=== PATIENT | male | born 1980 | race Caucasian/White ===

== ENCOUNTER → 2017-02-19 | Outpatient (CLI) | payer OTHER ==
[~2017-02-19] MED LIST: ALPR1TAB2 PO; AMOX1TAB64 PO; DOCU-131 PO; ESOM40CA PO; GABA800T2 PO; HYDR-3307 PO; HYDR-882 PO; KETO10TA PO; METH750T87 PO; MORP60TA34 PO; MULT-224 PO; OMEG1CAP24 PO; PREG300C PO; TESTOSTERONE SQ
== END | disposition home or self-care (01) ==
LOC: RAD 12:34
PROVIDERS: ATTEND Nurse Practitioner Family
DX: N20.0 Calculus of kidney (principal); S09.90XD Unspecified injury of head, subsequent encounter; Z98.890 Other specified postprocedural states; X58.XXXD Exposure to other specified factors, subsequent encounter
CPT/HCPCS: 70450; 74176

== ENCOUNTER 2017-03-31 07:55 | Emergency (ER) | payer OTHER ==
[~2017-03-31] VITALS: Ht 190.5 cm; Wt 98.2 kg
[2017-03-31] MEDS ORDERED: FAMOTIDINE 20 MG/2 ML IVP ONE (08:30)
[2017-03-31] MEDS ORDERED: HYDROmorphone 1 MG/ML, 1ML IVPush PRN (08:30)
[2017-03-31] MEDS ORDERED: ONDANSETRON 2MG/ML, 2ML IVPush ONE (08:30)
[2017-03-31] MEDS ORDERED: SODIUM CHLORIDE 0.9% 1,000ML IVBOLUS ONE (08:30)
[2017-03-31] MEDS ORDERED: SODIUM CHLORIDE FLUSH 10ML SYR IVF ONE (08:30)
[2017-03-31] MEDS ORDERED: ONDANSETRON 2MG/ML, 2ML ONE (08:48)
[2017-03-31] MEDS ORDERED: FAMOTIDINE 20 MG/2 ML ONE (08:49)
[2017-03-31 08:50] LABS: BASOPHILS # (AUTO) 0.02 x10^3/uL (0-0.1); BASOPHILS % (AUTO) 0 % (0-1); EOSINOPHILS # (AUTO) 0.31 x10^3/uL (0-0.4); EOSINOPHILS % (AUTO) 4 % (1-7); LYMPHOCYTES # (AUTO) 1.65 x10^3/uL (1-3.4); LYMPHOCYTES % (AUTO) 19 % (22-44); MD NO; MEAN CORPUSCULAR HEMOGLOBIN 30.9 pg (27.5-34.5); MEAN CORPUSCULAR HGB CONC 33.7 g/dL (33.2-36.2); MEAN CORPUSCULAR VOLUME 91.8 fL (81-97); MEAN PLATELET VOLUME 8.8 fL (7.4-10.4); MONOCYTES # (AUTO) 0.52 x10^3/uL (0.2-0.8); MONOCYTES % (AUTO) 6 % (2-9); NEUTROPHILS # (AUTO) 6.05 x10^3/uL (1.8-6.8); NEUTROPHILS % (AUTO) 71 % (42-75); PLATELET COUNT 179 x10^3/uL (130-400); RED BLOOD COUNT 4.87 x10^6/uL (4.38-5.82)
[2017-03-31 09:02] LABS: ALANINE AMINOTRANSFERASE 59 U/L (12-78); ALBUMIN 4.4 g/dL (3.4-5.0); ANION GAP 6 mmol/L (5-15); CALCIUM 9.3 mg/dL (8.5-10.1); CHLORIDE 106 mmol/L (98-107); CREATININE 0.94 mg/dL (0.7-1.3)
[2017-03-31 09:04] LABS: ALKALINE PHOSPHATASE 87 U/L (45-117); BILIRUBIN,TOTAL 1.1 mg/dL (0.2-1.0); TOTAL PROTEIN 7.6 g/dL (6.4-8.2)
[2017-03-31] MEDS ORDERED: HYDROmorphone 1 MG/ML, 1ML ONE (09:11)
[2017-03-31 09:18] LABS: MICROSCOPIC NOT IND
[2017-03-31 09:26] LABS: CULTURE INDICATED? NO
[2017-03-31] MEDS ORDERED: OMNIPAQUE 350 MG/ML, 100ML BOTTLE ONE (11:40)
[2017-03-31] MEDS ORDERED: HYDROmorphone 2 MG/ML, 1ML ONE ×2 (11:42→12:27)
[2017-03-31] MEDS ORDERED: METHYLNALTREXONE 12 MG/0.6 ML SQ ONE (12:00)
[2017-03-31 12:10] VITALS: BP 128/75
== END 2017-03-31 12:22 | disposition home or self-care (01) ==
LOC: ED 09:17
DX: K29.00 Acute gastritis without bleeding (principal); K59.00 Constipation, unspecified; Z90.49 Acquired absence of other specified parts of digestive tract; Z98.84 Bariatric surgery status; Z93.3 Colostomy status; Z98.890 Other specified postprocedural states
CPT/HCPCS: 36415; 74177; 80053; 81003; 83690; 85025; 96361; 96372; 96374; 96375; 99285; J1170; J2405; J7030; Q9967; S0028

== ENCOUNTER 2018-05-31 17:01 | Emergency (ER) | payer OTHER ==
[~2018-05-31] VITALS: Ht 190.5 cm; Wt 97.1 kg
[2018-05-31] MEDS ORDERED: SODIUM CHLORIDE FLUSH 10ML SYR IVF ONE (17:30)
[2018-05-31 17:42] LABS: BASOPHILS # (AUTO) 0.01 x10^3/uL (0-0.1); BASOPHILS % (AUTO) 0 % (0-1); EOSINOPHILS # (AUTO) 0.29 x10^3/uL (0-0.4); EOSINOPHILS % (AUTO) 5 % (1-7); LYMPHOCYTES # (AUTO) 1.99 x10^3/uL (1-3.4); LYMPHOCYTES % (AUTO) 31 % (22-44); MD NO; MEAN CORPUSCULAR HEMOGLOBIN 31.4 pg (27.5-34.5); MEAN CORPUSCULAR HGB CONC 34.4 g/dL (33.2-36.2); MEAN CORPUSCULAR VOLUME 91.3 fL (81-97); MEAN PLATELET VOLUME 8.9 fL (7.4-10.4); MONOCYTES # (AUTO) 0.48 x10^3/uL (0.2-0.8); MONOCYTES % (AUTO) 8 % (2-9); NEUTROPHILS # (AUTO) 3.59 x10^3/uL (1.8-6.8); NEUTROPHILS % (AUTO) 56 % (42-75); PLATELET COUNT 152 x10^3/uL (130-400); RED BLOOD COUNT 4.97 x10^6/uL (4.38-5.82); RED CELL DISTRIBUTION WIDTH 13.4 % (9.4-14.8)
[2018-05-31 17:46] LABS: ALBUMIN 4.6 g/dL (3.4-5.0); ANION GAP 4 mmol/L (5-15); CHLORIDE 110 mmol/L (98-107)
[2018-05-31 17:50] LABS: ALANINE AMINOTRANSFERASE 44 U/L (12-78); ALKALINE PHOSPHATASE 110 U/L (45-117); BILIRUBIN,TOTAL 0.9 mg/dL (0.2-1.0); CREATININE 0.95 mg/dL (0.7-1.3); TOTAL PROTEIN 7.7 g/dL (6.4-8.2)
[2018-05-31] MEDS ORDERED: ONDANSETRON 2MG/ML, 2ML IVPush ONE (18:00)
[2018-05-31] MEDS ORDERED: ONDANSETRON 2MG/ML, 2ML ONE (18:08)
[2018-05-31] MEDS ORDERED: HYDROmorphone 2 MG/ML, 1ML ONE (18:10)
--- NOTE | 2018-05-31 18:23 | NUR ---
THIS IS A 38 YEAR OLD MALE WHO C/O OF UPPER ABD PAIN, 9/10 PAIN. PT HAS HX OF BACK PAIN, TAKES NORCO. PT TO CT SCAN VIA DEBOR[facility]
[2018-05-31] MEDS: HYDROmorphone 2 MG/ML, 1ML IVPush PRN ×2 (18:26→18:41)
[2018-05-31] MEDS ORDERED: HYDROmorphone 1 MG/ML, 1ML AMP ONE (18:35)
--- NOTE | 2018-05-31 18:42 | NUR ---
RE-MEDICATED WITH DILAUDID IV DUE TO PAIN STILL 10/13. REPORT TO MAYANK GONZALES, PLAN OF CARE DISCUSSED.
--- NOTE | 2018-05-31 18:50 | NUR ---
Bedside SBAR report received from RNAdebayo. Pt resting on gurney, at bedside. Pt on monitors, VSS. Pt being medicated, per MAR, for pain.
--- NOTE | 2018-05-31 19:24 | NUR ---
Dr. Castillo at bedside to discuss ED findings and POC.
--- NOTE | 2018-05-31 19:35 | NUR ---
Pt given water for PO challenge. No emesis, no change.
[2018-05-31 20:10] VITALS: BP 118/67
--- NOTE | 2018-05-31 20:12 | NUR ---
Patient/Caregiver given discharge instructions and they have confirmed that they understand the instructions. Patient ambulatory with steady gait.
== END 2018-05-31 20:13 | disposition home or self-care (01) ==
LOC: ED 20:07
DX: R10.13 Epigastric pain (principal); R10.12 Left upper quadrant pain
CPT/HCPCS: 36415; 74177; 80053; 83690; 85025; 96374; 96375; 99284; J1170; J2405

== ENCOUNTER → 2018-05-31 | Outpatient (CLI) | payer OTHER ==
[~2018-05-31] MED LIST changes: +BISA-49 PO; -GABA800T2 PO; +GABA800T5 PO; +HYDR-3653 PO; -HYDR-882 PO; -MULT-224 PO; +MULT-642 PO
== END | disposition home or self-care (01) ==
LOC: EDSTATUS 15:30 → RAD 15:31
PROVIDERS: ATTEND Surgery
DX: R10.9 Unspecified abdominal pain (principal)
CPT/HCPCS: 76705

== ENCOUNTER 2018-06-14 15:04 | Outpatient (CLI) | payer OTHER ==
[2018-06-14] MEDS ORDERED: GADOBUTROL 10 MMOL/10 ML VIAL ONE (16:07)
== END 2018-06-14 23:59 | disposition home or self-care (01) ==
LOC: RAD 15:04
PROVIDERS: ATTEND Surgery
DX: R10.9 Unspecified abdominal pain (principal)
CPT/HCPCS: 74183; A9585

== ENCOUNTER 2018-08-17 22:36 | Emergency (ER) | payer OTHER ==
[~2018-08-17] VITALS: Ht 190.5 cm; Wt 94.0 kg
--- NOTE | 2018-08-17 23:10 | NUR ---
PT HERE FOR CHUNK OF FOOD IN THROAT WHILE EATING DINNER. HX OF SAME. PT ABLE TO SPEAK BUT HAVING DIFFICULTY CONTROLING SECRETIONS. PROVIDED PT WITH WARM BLANKET, MONITORS APPLIED, SIDERAILS UP X2, CALL LIGHT WITHIN REACH.
[2018-08-17] MEDS ORDERED: HYDR-3307 PO (23:18)
[2018-08-17] MEDS ORDERED: calcium (23:18)
[2018-08-17] MEDS ORDERED: METH750T2 PO (23:18)
[2018-08-17 23:25] LABS: BASOPHILS # (AUTO) 0.02 x10^3/uL (0-0.1); BASOPHILS % (AUTO) 0 % (0-1); EOSINOPHILS % (AUTO) 5 % (1-7); LYMPHOCYTES # (AUTO) 2.18 x10^3/uL (1-3.4); LYMPHOCYTES % (AUTO) 27 % (22-44); MD NO; MEAN CORPUSCULAR HEMOGLOBIN 31.5 pg (27.5-34.5); MEAN CORPUSCULAR HGB CONC 33.4 g/dL (33.2-36.2); MEAN CORPUSCULAR VOLUME 94.5 fL (81-97); MEAN PLATELET VOLUME 8.8 fL (7.4-10.4); MONOCYTES # (AUTO) 0.44 x10^3/uL (0.2-0.8); MONOCYTES % (AUTO) 6 % (2-9); NEUTROPHILS # (AUTO) 4.96 x10^3/uL (1.8-6.8); NEUTROPHILS % (AUTO) 62 % (42-75); PLATELET COUNT 172 x10^3/uL (130-400); RED BLOOD COUNT 4.72 x10^6/uL (4.38-5.82); RED CELL DISTRIBUTION WIDTH 13.4 % (9.4-14.8)
--- NOTE | 2018-08-17 23:30 | NUR ---
PT RESTING ON ADELITA, PT STATED " I TRIED TO DRINK SODA BUT IT MAKES MY THROAT WORSE", ERP UPDATED. PT DENIES NEEDS, CALL LIGHT WITHIN REACH. AWAITING LAB RESULTS AND XRAY
[2018-08-17 23:35] LABS: ALANINE AMINOTRANSFERASE 40 U/L (12-78); ALBUMIN 4.5 g/dL (3.4-5.0); ANION GAP 9 mmol/L (5-15); CALCIUM 9.2 mg/dL (8.5-10.1); CHLORIDE 108 mmol/L (98-107); CREATININE 0.85 mg/dL (0.7-1.3)
[2018-08-17 23:37] LABS: ALKALINE PHOSPHATASE 92 U/L (45-117); BILIRUBIN,TOTAL 0.9 mg/dL (0.2-1.0); TOTAL PROTEIN 7.7 g/dL (6.4-8.2)
[2018-08-18] MEDS ORDERED: PROPOFOL 10 MG/ML, 20ML ONE ×5 (00:14→01:51)
--- NOTE | 2018-08-18 02:01 | NUR ---
time of procedure started at 0016, ended at 0144. all life saving interventions at bedside, suction to place, and bvm to o2 thru procedure, erp infused 900 mg propofol thru procedure, pt tolerated procedure well and maintained own airway. pt back at baseline at approx 0202, vss. wctm
--- NOTE | 2018-08-18 02:15 | NUR ---
Break RN: Care assumed for pt recovery post-sedation. Pt awake and answering all questions. Pt states he's ready to go home. Will attempt PO challenge in approx 15 minutes. Pt to be d/c home when ready. S/O at bedside aware of POC. Warm blanket given.
--- NOTE | 2018-08-18 02:39 | NUR ---
Attempting PO challenge. Pt to be d/c when able.
--- NOTE | 2018-08-18 02:55 | NUR ---
Pt tolerating PO well. Ambulates with steady gait to BR and able to void. VSS. No s/s of acute distress or resp depression. Pt requesting to go home. He is d/c with his s/o who is an RN and feels comfortable taking pt home at this time. Ambulates with steady gait to lob.
[2018-08-18 03:00] VITALS: BP 105/55
== END 2018-08-18 03:02 | disposition home or self-care (01) ==
LOC: ED 23:15
DX: T17.228A Food in pharynx causing other injury, initial encounter (principal); X58.XXXA Exposure to other specified factors, initial encounter; Y93.89 Activity, other specified; Y92.89 Other specified places as the place of occurrence of the external cause; Y99.8 Other external cause status
CPT/HCPCS: 36415; 80053; 83690; 85025; 88305; 99152; 99153; 99285

== ENCOUNTER 2018-09-17 13:02 | Outpatient (CLI) | payer OTHER | END 2018-09-17 23:59 | disposition home or self-care (01) | LOC: STAR 13:02 | PROVIDERS: ATTEND Surgery | DX: Z02.9 Encounter for administrative examinations, unspecified (principal) ==

== ENCOUNTER 2018-09-21 06:57 | Day surgery (SDC) | payer OTHER ==
[~2018-09-21] VITALS: Ht 190.5 cm; Wt 92.7 kg
[~2018-09-21 06:57] MED LIST changes: +METH750T2 PO; +calcium
[2018-09-21 07:51] VITALS: BP 110/72
[2018-09-21] MEDS ORDERED: LACTATED RINGERS 1,000 ML IV SCH (07:54)
[2018-09-21] MEDS ORDERED: INDOCYANINE GREEN 25 MG VIAL ONE (08:36)
[2018-09-21] MEDS ORDERED: BUPIVACAINE/PF-EPI 0.5% 1:200K ONE (08:36)
[2018-09-21] MEDS ORDERED: GABAPENTIN 300 MG CAPSULE ONE (08:46)
[2018-09-21] MEDS ORDERED: OxyconTIN ER 20 MG TAB.ER ONE (08:46)
[2018-09-21] MEDS ORDERED: FENTANYL PF 250 MCG/5ML ONE (08:50)
[2018-09-21] MEDS ORDERED: MIDAZOLAM 1 MG/ML, 2ML ONE (08:50)
[2018-09-21] MEDS ORDERED: SUGAMMADEX 200 MG/2 ML IVPush ONE (08:52)
[2018-09-21] MEDS ORDERED: CLINDAMYCIN 150 MG/ML, 6ML ONE (09:00)
[2018-09-21] MEDS ORDERED: DEXMEDETOMIDINE 200 MCG/2 ML ONE (09:00)
[2018-09-21] MEDS ORDERED: DEXAMETHASONE 4 MG/ML, 1ML ONE (09:08)
[2018-09-21] MEDS ORDERED: LIDOCAINE-MPF 2% ,5ML ONE (09:08)
[2018-09-21] MEDS ORDERED: ONDANSETRON 2MG/ML, 2ML ONE (09:08)
[2018-09-21] MEDS ORDERED: ROCURONIUM 10MG/ML,5ML ONE (09:08)
[2018-09-21] MEDS ORDERED: PROPOFOL 10 MG/ML, 20ML ONE (09:08)
[2018-09-21] MEDS ORDERED: MEPERIDINE/PF 100 MG/ML ONE (09:11)
[2018-09-21] MEDS ORDERED: HYDROcodone/APAP 7.5-325MG/15ML UDC PO PRN (10:30)
[2018-09-21] MEDS ORDERED: FENTANYL PF 100 MCG/2ML IV PRN (10:30)
[2018-09-21] MEDS ORDERED: METHOCARBAMOL 1,000 MG in DEXTROSE 5% 100 ML IV SCH (10:30)
[2018-09-21] MEDS ORDERED: HALOPERIDOL 5 MG/ML IV PRN (10:30)
[2018-09-21] MEDS ORDERED: HYDROmorphone 2 MG/ML, 1ML IVPush PRN (10:30)
[2018-09-21] MEDS ORDERED: MEPERIDINE/PF 25MG/0.5ML IVPush PRN (10:30)
[2018-09-21] MEDS ORDERED: OXYcodone 5 MG/5 ML ORAL.SOL UDC PO PRN (10:30)
[2018-09-21] MEDS ORDERED: hydrALAzine 20 MG/ML, 1ML IV PRN (10:30)
[2018-09-21] MEDS ORDERED: ACETAMINOPHEN 325 MG TABLET PO PRN (10:30)
[2018-09-21] MEDS ORDERED: PROMETHAZINE 25 MG/ML, 1ML IV PRN (10:30)
[2018-09-21] MEDS ORDERED: HYDROmorphone 2 MG/ML, 1ML ONE ×2 (10:33→11:20)
[2018-09-21] MEDS: HYDROmorphone 2 MG/ML, 1ML IVPush PRN ×6 (10:36→11:36)
[2018-09-21] MEDS ORDERED: OXYcodone 5 MG/5 ML ORAL.SOL UDC ONE (11:13)
== END 2018-09-21 15:40 | disposition home or self-care (01) ==
LOC: OUT 06:57
PROVIDERS: ATTEND Surgery
DX: K43.2 Incisional hernia without obstruction or gangrene (principal); K66.0 Peritoneal adhesions (postprocedural) (postinfection); Z72.89 Other problems related to lifestyle; Z79.899 Other long term (current) drug therapy; Z88.8 Allergy status to other drugs, medicaments and biological substances; Z90.49 Acquired absence of other specified parts of digestive tract; Z98.1 Arthrodesis status; Z82.49 Family history of ischemic heart disease and other diseases of the circulatory system
CPT/HCPCS: 49656; C1781; J1100; J1170; J2175; J2405; J2704; J2800; J7120; S2900

== ENCOUNTER 2019-08-14 09:20 | Outpatient (CLI) | payer OTHER ==
[~2019-08-14 09:20] MED LIST changes: +HYDR-3246 PO; -HYDR-3307 PO
[2019-08-14] MEDS ORDERED: OMNIPAQUE 350 MG/ML, 100ML BOTTLE ONE (11:34)
== END 2019-08-14 23:59 | disposition home or self-care (01) ==
LOC: CFH 09:20
PROVIDERS: ATTEND Surgery
DX: K57.30 Diverticulosis of large intestine without perforation or abscess without bleeding (principal); K46.9 Unspecified abdominal hernia without obstruction or gangrene
CPT/HCPCS: 74177; Q9967

== ENCOUNTER 2019-09-13 14:45 | Outpatient (CLI) | payer OTHER ==
[2019-09-13] MEDS ORDERED: DICL100G19 TP (15:07)
[2019-09-13] MEDS ORDERED: SULF1TAB24 PO (15:07)
[2019-09-13] MEDS ORDERED: LIDO5CRE26 TP (15:07)
== END 2019-09-13 23:59 | disposition home or self-care (01) ==
LOC: STAR 14:45
PROVIDERS: ATTEND Surgery
DX: Z02.9 Encounter for administrative examinations, unspecified (principal)

== ENCOUNTER 2019-11-21 22:20 | Emergency (ER) | payer OTHER ==
[~2019-11-21] VITALS: Ht 182.9 cm; Wt 97.9 kg
[~2019-11-21 22:20] MED LIST changes: +DICL100G19 TP; +LIDO5CRE26 TP; +SULF1TAB24 PO
--- NOTE | 2019-11-21 22:53 | NUR ---
39/M. Food bolus. Pt has hx of strictures. FB is a piece of chicken per pt. Pt reports need for scope in past for bolus removal. No signs of respiratory distress at this time.
[2019-11-21] MEDS ORDERED: SODIUM CHLORIDE FLUSH 10ML SYR IVF ONE (23:00)
[2019-11-21] MEDS ORDERED: ONDANSETRON 2MG/ML, 2ML ONE (23:44)
[2019-11-21] MEDS ORDERED: PROPOFOL 100 ML IV ONE (23:45)
--- NOTE | 2019-11-22 00:34 | NUR ---
Pt conscious sedation. See paperwork. Pt returned to baseline. Pt tolerated procedure well. Pt given PO fluid for fluid challenge prior to D/C. PA notified.
[2019-11-22 00:40] VITALS: BP 120/64
--- NOTE | 2019-11-22 00:43 | NUR ---
Pt tolerated PO fluids. VS stable. Ambulatory. PIV removed. Pt tbdc
== END 2019-11-22 01:30 | disposition home or self-care (01) ==
LOC: ED 11-22
DX: T18.128A Food in esophagus causing other injury, initial encounter (principal); R07.0 Pain in throat; Z87.891 Personal history of nicotine dependence; Z90.49 Acquired absence of other specified parts of digestive tract; X58.XXXA Exposure to other specified factors, initial encounter; Y93.89 Activity, other specified; Y92.89 Other specified places as the place of occurrence of the external cause; Y99.8 Other external cause status
CPT/HCPCS: 99285